=== PATIENT | female | born 1965 | race Caucasian/White ===

== ENCOUNTER 2017-05-17 12:22 | Inpatient (IN) | payer BC ==
[~2017-05-17] VITALS: Ht 172.7 cm; Wt 78.9 kg
[2017-05-17 13:36] LABS: BASOPHILS % (AUTO) 0.8 % (0.0-5.0); EOSINOPHILS % (AUTO) 1.9 % (0.0-8.0); HEMATOCRIT 34.4 % (36-48); LYMPHOCYTES % (AUTO) 31.6 % (21.0-51.0); MEAN CORPUSCULAR HEMOGLOBIN 30.7 pg (27.0-33.0); MEAN CORPUSCULAR HGB CONC 34.6 g/dL (32.0-36.0); MEAN CORPUSCULAR VOLUME 88.6 fL (79-99); MONOCYTES % (AUTO) 6.5 % (3.0-13.0); NEUTROPHILS % (AUTO) 59.2 % (40.0-77.0); PLATELET COUNT (AUTO) 349 K/uL (130-400); RED BLOOD CELL COUNT(AUTO) 3.88 MIL/uL (4.00-5.50); RED CELL DISTRIBUTION WIDTH 14.4 % (11.0-15.5)
[2017-05-17 13:48] LABS: CREATININE 0.7 mg/dL (0.5-1.5)
[2017-05-17 13:50] LABS: ALBUMIN 3.8 g/dL (3.5-5.0); BILIRUBIN,TOTAL 0.3 mg/dL (0.2-1.0)
[2017-05-17 13:51] LABS: TOTAL PROTEIN, SERUM 6.6 g/dL (6.0-8.3)
[2017-05-17 13:59] LABS: INR 0.92 (0.85-1.15); PARTIAL THROMBOPLASTIN TIME 26.4 SEC (26.3-35.5); PROTHROMBIN TIME 9.7 SEC (9.6-11.6)
[2017-05-17] MEDS ORDERED: SODIUM CHLORIDE 0.9% 100 ML IV ONE (15:11)
[2017-05-17 15:19] LABS: HEMATOCRIT 27.7 % (36-48)
[2017-05-17] MEDS ORDERED: METRONIDAZOLE 500MG/100ML BAG 100 ML ONE (17:26)
[2017-05-17 18:03] LABS: APPEARANCE,URINE Clear (CLEAR); BILIRUBIN,URINE Negative (NEGATIVE); COLOR,URINE Yellow (YELLOW); GLUCOSE, URINE (UA) Negative (NEGATIVE); KETONES,URINE 15 mg/dL (NEGATIVE); LEUKOCYTE ESTERASE ,URINE Small (NEGATIVE); NITRATE,URINE Negative (NEGATIVE); OCCULT BLOOD,URINE Small (NEGATIVE); PROTEIN,URINE Negative (NEGATIVE); UROBILINOGEN,URINE 0.2 mg/dL (0.2-1.0)
[2017-05-17 18:06] LABS: BACTERIA,URINE Few /HPF (None Seen); RBC,URINE None Seen /HPF (0-1)
[2017-05-17] MEDS ORDERED: LEVOFLOXACIN 500 MG/D5W 100 ML 100 ML ONE (20:17)
[2017-05-17 21:30] VITALS: BP 140/79
[2017-05-17] MEDS ORDERED: CEPHALEXIN 500 MG CAPSULE PO SCH (23:00)
[2017-05-17] MEDS ORDERED: ACETAMINOPHEN EXTRA STRENGTH 500 MG TABLET PO PRN (23:30)
[2017-05-17] MEDS ORDERED: ONDANSETRON HCL 4 MG/2 ML VIAL IVP PRN (23:30)
[2017-05-17 23:39] LABS: HEMATOCRIT 26.6 % (36-48)
[2017-05-18] MEDS ORDERED: CARB-38 PO (00:20)
[2017-05-18 00:45] VITALS: BP 110/51
[2017-05-18] MEDS ORDERED: DiphenhydrAMINE HCL 50 MG/ML VIAL IV PRN (02:15)
[2017-05-18] MEDS ORDERED: HYDRALAZINE HCL 20 MG/ML VIAL IV PRN (02:15)
[2017-05-18] MEDS ORDERED: POTASSIUM CHLORIDE 20MEQ/100ML 100 ML IV PRN (02:15)
[2017-05-18] MEDS ORDERED: LIDOCAINE HCL-MPF 1% 2ML VIAL IVP PRN (02:15)
[2017-05-18] MEDS ORDERED: POTASSIUM CHLORIDE 10% ELIXIR 20 MEQ/15 ML UDCUP PO PRN (02:15)
[2017-05-18] MEDS ORDERED: ALBUTEROL SULFATE 0.083% 2.5 MG/3 ML INH IH PRN (02:15)
[2017-05-18] MEDS ORDERED: SODIUM CHLORIDE 0.9% 100 ML IV ONE (02:41)
[2017-05-18] MEDS ORDERED: METRONIDAZOLE 500MG/100ML BAG 100 ML ONE (02:44)
[2017-05-18] MEDS: PANTOPRAZOLE SODIUM 80 MG in SODIUM CHLORIDE 0.9% 100 ML IV SCH ×2 (02:50→16:00)
[2017-05-18] MEDS: SODIUM CHLORIDE 0.9% 1000ML 1,000 ML IV SCH ×3 (02:51→19:30)
[2017-05-18 03:34] VITALS: BP 124/55
[2017-05-18] MEDS: METRONIDAZOLE 500MG/100ML BAG 100 ML IV SCH ×2 (05:31→13:47)
[2017-05-18 06:07] LABS: HEMATOCRIT 26.7 % (36-48); MEAN CORPUSCULAR HEMOGLOBIN 30.4 pg (27.0-33.0); MEAN CORPUSCULAR HGB CONC 34.5 g/dL (32.0-36.0); MEAN CORPUSCULAR VOLUME 88.1 fL (79-99); PLATELET COUNT (AUTO) 297 K/uL (130-400); RED BLOOD CELL COUNT(AUTO) 3.03 MIL/uL (4.00-5.50); RED CELL DISTRIBUTION WIDTH 14.7 % (11.0-15.5); WHITE BLOOD COUNT (AUTO) 8.9 K/uL (4.8-10.8)
[2017-05-18 06:24] LABS: ALBUMIN 2.9 g/dL (3.5-5.0); BILIRUBIN,TOTAL 0.3 mg/dL (0.2-1.0); CREATININE 0.6 mg/dL (0.5-1.5); POTASSIUM 3.8 mmol/L (3.5-5.1); TOTAL PROTEIN, SERUM 5.4 g/dL (6.0-8.3)
[2017-05-18 07:53] VITALS: BP 148/72
[2017-05-18 07:55] LABS: BASOPHILS % (MANUAL) 1 % (0-2); EOSINOPHILS % (MANUAL) 2 % (1-6); LYMPHOCYTES % (MANUAL) 33 % (22-44); MAN.DIFF COMMENT-IMPRESSION MANUAL DIFFERENTIAL; MONOCYTES % (MANUAL) 3 % (2-9); PLATELET MORPHOLOGY COMMENT ADEQUATE; SEGMENTED NEUTROPHILS % 61 % (40-70)
[2017-05-18] MEDS: LEVOFLOXACIN 500 MG/D5W 100 ML 100 ML IV SCH (09:16)
[2017-05-18] MEDS: CARBIDOPA-LEVODOPA 25-100 TAB PO SCH ×4 (09:16→22:02)
[2017-05-18] MEDS ORDERED: MORPHINE SULFATE 2 MG/ML 1ML SYG IVP PRN (10:00)
[2017-05-18] MEDS ORDERED: MORPHINE SULFATE 4 MG/1ML SYG IVP PRN (10:00)
[2017-05-18] MEDS ORDERED: ACETAMINOPHEN-CODEINE 300/30MG TAB PO PRN ×2 (10:00)
[2017-05-18 11:59] VITALS: BP 119/70
[2017-05-18 16:00] VITALS: BP 175/73
[2017-05-18 20:30] VITALS: BP 147/70
[2017-05-18] MEDS: METRONIDAZOLE 500 MG TABLET PO SCH (22:02)
[2017-05-18] MEDS: IPRATROPIUM 0.5 MG/2.5 ML INH IH SCH (23:31)
[2017-05-19 00:24] VITALS: BP 111/74
[2017-05-19 04:00] VITALS: BP 127/84
[2017-05-19] MEDS: METRONIDAZOLE 500 MG TABLET PO SCH ×3 (04:59→20:35)
[2017-05-19] MEDS: SODIUM CHLORIDE 0.9% 1000ML 1,000 ML IV SCH (04:59)
[2017-05-19 05:39] LABS: HEMATOCRIT 28.2 % (36-48); MEAN CORPUSCULAR HEMOGLOBIN 31.9 pg (27.0-33.0); MEAN CORPUSCULAR HGB CONC 36.1 g/dL (32.0-36.0); MEAN CORPUSCULAR VOLUME 88.3 fL (79-99); NUCLEATED RED BLOOD CELLS 0.1 % (0.0-0.19); PLATELET COUNT (AUTO) 325 K/uL (130-400); RED BLOOD CELL COUNT(AUTO) 3.19 MIL/uL (4.00-5.50); RED CELL DISTRIBUTION WIDTH 14.2 % (11.0-15.5); WHITE BLOOD COUNT (AUTO) 9.1 K/uL (4.8-10.8)
[2017-05-19 05:50] LABS: CREATININE 0.6 mg/dL (0.5-1.5); MAGNESIUM 1.9 mg/dL (1.80-2.40); PHOSPHORUS 2.6 mg/dL (2.5-4.9); POTASSIUM 3.6 mmol/L (3.5-5.1)
[2017-05-19] MEDS: IPRATROPIUM 0.5 MG/2.5 ML INH IH SCH ×4 (06:49→23:44)
[2017-05-19 08:05] VITALS: BP 148/81
[2017-05-19 11:18] VITALS: BP 136/83
[2017-05-19] MEDS: CARBIDOPA-LEVODOPA 25-100 TAB PO SCH ×4 (11:49→20:39)
[2017-05-19] MEDS: LEVOFLOXACIN 500 MG/D5W 100 ML 100 ML IV SCH (11:50)
[2017-05-19] MEDS: POTASSIUM CHLORIDE 20 MEQ ERTAB PO PRN ×2 (15:53→18:02)
[2017-05-19] MEDS: PANTOPRAZOLE 40 MG/VIAL IVP SCH (15:53)
[2017-05-19 16:45] VITALS: BP 151/86
[2017-05-19 19:51] VITALS: BP 148/86
[2017-05-20] VITALS: BP 142/83
[2017-05-20 04:00] VITALS: BP 156/85
[2017-05-20 04:54] LABS: HEMATOCRIT 29.2 % (36-48); MEAN CORPUSCULAR HEMOGLOBIN 30.4 pg (27.0-33.0); MEAN CORPUSCULAR HGB CONC 34.9 g/dL (32.0-36.0); PLATELET COUNT (AUTO) 370 K/uL (130-400); RED BLOOD CELL COUNT(AUTO) 3.36 MIL/uL (4.00-5.50); RED CELL DISTRIBUTION WIDTH 14.4 % (11.0-15.5); WHITE BLOOD COUNT (AUTO) 8.5 K/uL (4.8-10.8)
[2017-05-20 04:57] LABS: CREATININE 0.7 mg/dL (0.5-1.5); POTASSIUM 4.2 mmol/L (3.5-5.1)
[2017-05-20] MEDS: IPRATROPIUM 0.5 MG/2.5 ML INH IH SCH ×2 (07:00→10:54)
[2017-05-20 07:45] VITALS: BP 142/85
[2017-05-20] MEDS: METRONIDAZOLE 500 MG TABLET PO SCH ×2 (08:08→14:23)
[2017-05-20 08:18] VITALS: BP 137/80
[2017-05-20] MEDS: LEVOFLOXACIN 500 MG/D5W 100 ML 100 ML IV SCH (08:35)
[2017-05-20] MEDS: PANTOPRAZOLE 40 MG/VIAL IVP SCH (08:35)
[2017-05-20] MEDS: CARBIDOPA-LEVODOPA 25-100 TAB PO SCH ×2 (08:35→14:23)
[2017-05-20 12:00] VITALS: BP 118/64
[2017-05-20] MEDS ORDERED: LEVO500T89 PO (16:20)
[2017-05-20] MEDS ORDERED: METR500T4 PO (16:20)
== END 2017-05-20 16:44 | disposition home or self-care (01) | DRG 871 ==
LOC: EDH 12:22 → EDHIP 15:40 → 4BH 20:52
PROVIDERS: ADMIT Internal Medicine; ATTEND Internal Medicine
DX: A41.9 Sepsis, unspecified organism (principal); K57.93 Diverticulitis of intestine, part unspecified, without perforation or abscess with bleeding; K57.33 Diverticulitis of large intestine without perforation or abscess with bleeding; G20 Parkinson's disease; D62 Acute posthemorrhagic anemia; E86.9 Volume depletion, unspecified; F17.210 Nicotine dependence, cigarettes, uncomplicated; I10 Essential (primary) hypertension; J44.9 Chronic obstructive pulmonary disease, unspecified; K52.9 Noninfective gastroenteritis and colitis, unspecified; Z88.0 Allergy status to penicillin; Z90.49 Acquired absence of other specified parts of digestive tract
CPT/HCPCS: 36415; 71045; 74018; 74176; 80048; 80053; 81001; 82270; 83605; 83735; 84100; 85014; 85018; 85025; 85027; 85610; 85651; 85730; 86141; 86850; 86900; 86901; 86922; 94640; 94664; C9113; J0360; J1956; J3490; J7030